=== PATIENT | male | born 1970 | race Caucasian/White ===

== ENCOUNTER → 2020-10-22 | Outpatient (CLI) | payer BC ==
[2020-10-05 11:08] VITALS: BP 121/75
[~2020-10-22] MED LIST: NORT25CA PO
--- NOTE | 2020-10-24 00:28 | SLEEP ---
DATE OF STUDY: 10/22/2020 HOME SLEEP STUDY ATTENDING PHYSICIAN: Dr. Jared Wiseman. The patient is 50 years old who weighs 250 pounds with a body mass index of 29.6. The patient underwent home sleep study performed at [facility] on 10/22/2020. Total recording time was 476 minutes. During the night study, the patient had 28 mixed apneas, no obstructive apneas, 2 central apneas and 10 hypopneas. The patient's AHI was 6.6 per hour. Nocturnal oximetry study revealed an average oxygen saturation of 93% with a lowest of 51%, which appears to be an artifact. An 11.6 minutes were spent with oxygen saturation less than 90%. Mean heart rate 63 beats per minute with a maximum of 118 beats per minute. IMPRESSION: 1. Mild obstructive sleep apnea at an AHI of 6.6 per hour. 2. Mild nocturnal hypoxia secondary to obstructive sleep apnea. RECOMMENDATIONS: 1. The patient has mild obstructive sleep apnea. I would recommend weight loss as initial form of treatment. 2. If the patient has comorbid conditions or is clinically symptomatic, then consider treatment of sleep apnea with either CPAP versus oral appliance. 3. Once the patient is optimally treated, then follow up in 4-6 weeks to assess compliance with treatment and to document clinical improvement. 4. Avoid [employer] P[employer] depressants. 5. Caution regarding driving until symptoms of sleep apnea resolve with above recommendations. VIVI/JAMI/MORE DR: Dominick TID: [id number] CC: Marcos WISEMAN MD
== END ==
LOC: RT 08:18
PROVIDERS: ATTEND Family Medicine
DX: G47.33 Obstructive sleep apnea (adult) (pediatric) (principal); G47.34 Idiopathic sleep related nonobstructive alveolar hypoventilation
CPT/HCPCS: G0399

== ENCOUNTER → 2020-11-26 | Outpatient (CLI) | payer BC ==
[2020-10-05 11:08] VITALS: BP 121/75
[2020-11-26 12:47] LABS: BASO % 0 % (0-3); EOS # 0.3 x10^3/uL (0.0-0.7); EOS % 3 % (0-3); HEMATOCRIT 52.8 % (39.0-53.0); HEMOGLOBIN 17.9 g/dL (13.0-17.5); LYMPH # 2.6 x10^3/uL (1.0-4.8); LYMPH % 24 % (24-48); MEAN CORPUSCULAR HEMOGLOBIN 29 pg (25-35); MEAN CORPUSCULAR HGB CONC 34 g/dL (31-37); MEAN CORPUSCULAR VOLUME 86 fL (79-100); MONO # 0.7 x10^3/uL (0.0-1.1); MONO % 6 % (0-9); NEUT # 7.3 x10^3/uL (1.8-7.7); NEUT % 67 % (31-73); PLATELET COUNT 258 x10^3/uL (140-400); RED BLOOD COUNT 6.15 x10^6/uL (4.30-5.70); RED CELL DISTRIBUTION WIDTH 14.4 % (11.5-14.5)
== END ==
LOC: ONCLAB 11:43
PROVIDERS: ATTEND Internal Medicine Hematology & Oncology
DX: D45 Polycythemia vera (principal)
CPT/HCPCS: 36415; 81270; 82668; 85025; 85045